=== PATIENT | female | born 1985 | race Caucasian/White ===

== ENCOUNTER 2018-10-12 23:20 | Emergency (ER) | payer MEDICAID, OTHER ==
[2018-10-13] MEDS: ACETAMINOPHEN 500 MG TAB PO (03:05)
[2018-10-13] MEDS: IBUPROFEN 800 MG TAB PO (03:05)
[2018-10-13] MEDS: CEPHALEXIN 500 MG CAP PO (03:05)
[2018-10-13] MEDS: DIPHTH/TET/ACEL PERTUSS (ADULT) 0.5 ML VIAL IM* (03:06)
== END 2018-10-13 03:40 | disposition home or self-care (01) ==
LOC: FTE 23:20
DX: S61.032A Puncture wound without foreign body of left thumb without damage to nail, initial encounter (principal); W22.8XXA Striking against or struck by other objects, initial encounter; Y92.512 Supermarket, store or market as the place of occurrence of the external cause; Z23 Encounter for immunization
CPT/HCPCS: 90471; 90715; 99283-25